=== PATIENT | female | born 1995 | race Caucasian/White ===

== ENCOUNTER → 2017-06-27 | Outpatient (CLI) | payer OTHER ==
[2017-07-03 14:18] LABS: CHLAMYDIA TRACH RNA*** NOT DETECTED (NOT DETECTED); GC (NEIS GONORRHOEAE)RNA** NOT DETECTED (NOT DETECTED); HERPES SIMPLEX CULT SOURCE GENITAL-VULVA; HERPES SIMPLEX VIRUS CULT NOT ISOLATED (NOT ISOLATED); TRICHOMONAS VAGINALIS RNA** NOT DETECTED (NOT DETECTED)
== END | disposition home or self-care (01) ==
LOC: C.LABSPEC 13:49
PROVIDERS: ATTEND Physician Assistant
DX: L29.8 Other pruritus (principal); Z11.3 Encounter for screening for infections with a predominantly sexual mode of transmission; N90.89 Other specified noninflammatory disorders of vulva and perineum

== ENCOUNTER → 2017-10-09 | Outpatient (CLI) | payer OTHER | END | disposition home or self-care (01) | LOC: C.LABSPEC 17:29 | PROVIDERS: ATTEND Obstetrics & Gynecology | DX: Z12.4 Encounter for screening for malignant neoplasm of cervix (principal) ==

== ENCOUNTER → 2017-10-09 | Outpatient (CLI) | payer OTHER | END | disposition home or self-care (01) | LOC: C.PAPS 09:26 | PROVIDERS: ATTEND Obstetrics & Gynecology | DX: Z12.4 Encounter for screening for malignant neoplasm of cervix (principal) ==

== ENCOUNTER 2017-11-05 21:49 | Emergency (ER) | payer OTHER ==
[~2017-11-05] VITALS: Ht 165.1 cm; Wt 71.8 kg
[2017-11-05 22:06] VITALS: TEMP 36.7; Ht 165.1 cm; Wt 71.8 kg
[2017-11-06] MEDS ORDERED: CNC/27 PO (00:15)
[2017-11-06] MEDS ORDERED: METH10TA4 PO (00:15)
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
[2017-11-06 00:47] VITALS: BP 117/66; PULSE 85; O2SAT 96
--- NOTE | 2017-11-06 06:34 | DIAGNOSTIC IMAGING REPORT ---
L WRIST W/NAVICULAR MIN 3 VIEWS CLINICAL HISTORY: Fall, L wrist pain trauma. Pain. COMPARISON: None. DISCUSSION: The bones and joint spaces appear intact. There is no evidence of fracture, dislocation or bony disease. There is no evidence for soft tissue swelling. IMPRESSION: Negative study. The above report was generated using voice recognition software. It may contain grammatical, syntax or spelling errors. Electronically signed by: David London M.D. 11/06/2017 6:33 AM Dictated Date/Time: 11/06/2017 6:32 AM
--- NOTE | 2017-11-06 06:36 | DIAGNOSTIC IMAGING REPORT ---
R KNEE 3 VIEWS CLINICAL HISTORY: Fall, R knee pain trauma. Pain. COMPARISON: None. DISCUSSION: The bones and joint spaces appear intact. There is no evidence of fracture, dislocation or bony disease. There is no evidence for soft tissue swelling. IMPRESSION: Negative study. The above report was generated using voice recognition software. It may contain grammatical, syntax or spelling errors. Electronically signed by: David London M.D. 11/06/2017 6:35 AM Dictated Date/Time: 11/06/2017 6:35 AM
--- NOTE | 2017-11-06 07:00 | DIAGNOSTIC IMAGING REPORT ---
L PELVIS/UNILATERAL HIP 2-3VIEWS CLINICAL HISTORY: Fall, L hip pain trauma. Pain. COMPARISON: None. DISCUSSION: The bones and joint spaces appear intact. There is no evidence of fracture, dislocation or bony disease. There is no evidence for soft tissue swelling. IMPRESSION: Negative study. The above report was generated using voice recognition software. It may contain grammatical, syntax or spelling errors. Electronically signed by: David London M.D. 11/06/2017 6:59 AM Dictated Date/Time: 11/06/2017 6:58 AM
--- NOTE | 2017-11-06 07:11 | DIAGNOSTIC IMAGING REPORT ---
CT SCAN OF THE BRAIN WITHOUT IV CONTRAST CLINICAL HISTORY: Fall. COMPARISON STUDY: No priors. TECHNIQUE: Unenhanced axial CT scan of the brain is performed from the vertex to the skull base. A dose lowering technique was utilized adhering to the principles of ALARA. CT DOSE: 537.48 mGy.cm FINDINGS: Brain parenchyma: The brain parenchyma is normal in appearance. There is no hemorrhage, mass effect, or evidence of acute territorial ischemia by CT criteria. -white matter is preserved. No extra-axial fluid collection is seen. Ventricles, sulci, cisterns: Normal in configuration. Intracranial vasculature: The visualized intracranial vasculature at the skull base is normal in appearance. Calvarium: There is no depressed calvarial fracture. Sinuses and mastoids: The visualized paranasal sinuses are clear. The mastoid air cells are well pneumatized. Orbits: The bony orbits are grossly intact. IMPRESSION: No acute intracranial abnormality. Electronically signed by: Vance Albert M.D. 11/06/2017 7:10 AM Dictated Date/Time: 11/06/2017 7:09 AM
== END 2017-11-06 00:51 | disposition home or self-care (01) ==
LOC: C.EDB 21:52
DX: M25.552 Pain in left hip (principal); M25.532 Pain in left wrist; M25.561 Pain in right knee; R51 Headache; W19.XXXA Unspecified fall, initial encounter